=== PATIENT | female | born 1995 | race Caucasian/White ===

== ENCOUNTER 2017-04-25 16:20 | Emergency (ER) | payer OTHER ==
[2017-04-25 19:57] LABS: HEMOGLOBIN 14.2 gm/dl (12.3-15.3); RED BLOOD COUNT 4.36 M/UL (4.00-5.10); WHITE BLOOD COUNT 11.4 K/UL (4.5-11.0)
[2017-04-25 20:14] LABS: BUN/CREATININE RATIO 20 (0-10)
== END 2017-04-25 22:40 | disposition left against medical advice (07) ==
LOC: ER1 16:20
PROVIDERS: Emergency Medicine
DX: N39.0 Urinary tract infection, site not specified (principal); F17.210 Nicotine dependence, cigarettes, uncomplicated
CPT/HCPCS: 80053; 81001; 83690; 84703; 85025; 87040; 87086; 93005; 96361; 96374; 99284; J2405

== ENCOUNTER → 2017-05-14 | Outpatient (CLI) | payer OTHER ==
[2017-05-14 14:59] LABS: HEMOGLOBIN 13.2 gm/dl (12.3-15.3); RED BLOOD COUNT 4.17 M/UL (4.00-5.10); WHITE BLOOD COUNT 7.4 K/UL (4.5-11.0)
[2017-05-14 15:16] LABS: BUN/CREATININE RATIO 28 (0-10)
== END ==
LOC: LAB 14:06
PROVIDERS: Nurse Practitioner
DX: R53.83 Other fatigue (principal); F41.9 Anxiety disorder, unspecified
CPT/HCPCS: 36415; 80053; 84443; 85025

== ENCOUNTER 2020-12-06 10:07 | Emergency (ER) | payer OTHER ==
[~2020-12-06 10:07] MED LIST: COLACE 100MG C100 MG PO; COLACE100 MG PO; IBUPROFEN600 MG PO; KEFLEX CAP 500500 MG PO; LORTAB 5-325 M1 EACH PO; MEDROL4 MG PO; NORCO 10-325 T1 EACH PO; NORCO 5-325 TA1 EACH PO; PERCOCET 5/325 T1 EA PO
== END 2020-12-06 12:40 | disposition home or self-care (01) ==
LOC: ER1 10:07
DX: S70.02XA Contusion of left hip, initial encounter (principal); W18.2XXA Fall in (into) shower or empty bathtub, initial encounter; Y92.002 Bathroom of unspecified non-institutional (private) residence as the place of occurrence of the external cause
CPT/HCPCS: 73502; 99283

== ENCOUNTER 2021-01-05 20:16 | Emergency (ER) | payer OTHER | END 2021-01-05 20:49 | disposition left against medical advice (07) | LOC: ER1 20:16 | DX: R10.32 Left lower quadrant pain (principal); Z53.21 Procedure and treatment not carried out due to patient leaving prior to being seen by health care provider ==

== ENCOUNTER 2021-01-21 18:15 | Emergency (ER) | payer OTHER ==
[2021-01-21] MEDS ORDERED: IBUPROFEN600 MG PO (19:14)
== END 2021-01-21 19:30 | disposition home or self-care (01) ==
LOC: ER1 18:15
DX: S50.11XA Contusion of right forearm, initial encounter (principal); Z87.891 Personal history of nicotine dependence; W01.0XXA Fall on same level from slipping, tripping and stumbling without subsequent striking against object, initial encounter; Y92.009 Unspecified place in unspecified non-institutional (private) residence as the place of occurrence of the external cause
CPT/HCPCS: 29125; 73080; 73090; 73130; 99283

== ENCOUNTER 2022-03-16 14:46 | Emergency (ER) | payer OTHER | END 2022-03-16 16:40 | disposition home or self-care (01) | LOC: ER1 14:46 | DX: S80.01XA Contusion of right knee, initial encounter (principal); W01.0XXA Fall on same level from slipping, tripping and stumbling without subsequent striking against object, initial encounter; Y92.22 Religious institution as the place of occurrence of the external cause | CPT/HCPCS: 73564; 99283 ==

== ENCOUNTER 2022-06-02 16:26 | Emergency (ER) | payer OTHER | END 2022-06-02 17:45 | disposition left against medical advice (07) | LOC: ER1 16:26 | DX: Z53.21 Procedure and treatment not carried out due to patient leaving prior to being seen by health care provider (principal) ==

== ENCOUNTER 2022-08-07 16:03 | Outpatient (CLI) | payer OTHER | END 2022-08-07 17:16 | disposition other institution (70) | LOC: GENOP 16:03 | DX: O99.891 Other specified diseases and conditions complicating pregnancy (principal); R07.9 Chest pain, unspecified; R06.02 Shortness of breath; M54.9 Dorsalgia, unspecified; R10.12 Left upper quadrant pain; Z3A.23 23 weeks gestation of pregnancy; Z87.891 Personal history of nicotine dependence | CPT/HCPCS: G0463 ==

== ENCOUNTER 2022-08-07 17:38 | Emergency (ER) | payer OTHER ==
[2022-08-07 18:26] LABS: HEMOGLOBIN 12.1 gm/dl (12.3-15.3); RED BLOOD COUNT 3.55 M/UL (4.00-5.10)
[2022-08-07 18:54] LABS: BUN/CREATININE RATIO 12 (0-10)
== END 2022-08-07 19:15 | disposition home or self-care (01) ==
LOC: ER1 17:38
PROVIDERS: Physician Assistant
DX: O99.891 Other specified diseases and conditions complicating pregnancy (principal); R06.02 Shortness of breath; O99.342 Other mental disorders complicating pregnancy, second trimester; Z3A.24 24 weeks gestation of pregnancy; Z20.822 Contact with and (suspected) exposure to COVID-19
CPT/HCPCS: 71045; 80053; 82550; 82553; 84484; 85025; 87081; 87880; 93005; 99285; Q0177; U0002